=== PATIENT | female | born 1980 | race Caucasian/White ===

== ENCOUNTER 2018-08-13 21:20 | Emergency (ER) | payer BC, OTHER ==
[2018-08-13] MEDS ORDERED: ZIPRASIDONE MESYLA 20 MG/VIAL IM ONE (21:48)
[2018-08-13] MEDS ORDERED: WATER FOR INJ,STERILE 10 ML ONE (21:48)
--- NOTE | 2018-08-13 22:33 | EDPHYS ---
Physician Documentation [facility] Name: Kelsie Glasgow Age: 38 yrs Sex: Female : 1980 Arrival Date: 08/13/2018 Time: 21:26 Bed 3 Private MD: ED Physician Indra Kaufman HPI: 08/13 21:34 This 38 yrs old Female presents to ER via Unassigned with complaints of Psych kdr Problem. 21:34 The patient presents to the emergency department with anxiety, psychosis, manic. Onset: kdr The symptoms/episode began/occurred at an unknown time. Past psychiatric history: Prior diagnosis: depression, schizophrenia. Associated signs and symptoms: Pertinent positives; anxiety, paranoia. Severity of symptoms: At their worst the symptoms were incapacitating in the emergency department the symptoms are unchanged. It is unknown whether or not the patient has had similar symptoms in the past. It is unknown whether or not the patient has recently seen a physician. The patient was found walking down her street apparently in her neighborhood. 12 neighbors called 911 to report the patient and her activity.. Historical: - Allergies: 22:05 LITHIUM DERIVITIVES; fc - Home Meds: 22:08 Cogentin Oral 1 mg daily [Active]; Haldol 5 mg daily [Active]; Seroquel 100 mg Oral tab fc 1 tabs at noon and 3 tabs at night [Active]; Xanax 0.5 mg Oral tab 1 tab as needed [Active]; - PMHx: 22:05 Bipolar disorder; Depression; Schizophrenia; fc 22:08 Hypertension; Diabetes - NIDDM; Anxiety; ADD/ADHD; PTSD; Suicide attempt x 3; fc - PSHx: 22:08 None; fc - Immunization history:: Last tetanus immunization: up to date. - Social history:: Smoking status: Patient uses tobacco products, smokes one pack cigarettes per day. Patient/guardian denies using alcohol, the patient reports quitting approximately [address], [address] drugs. - Ebola Screening: : Patient negative for fever greater than or equal to 101.5 degrees Fahrenheit, and additional compatible Ebola Virus Disease symptoms Patient denies exposure to infectious person Patient denies travel to an Ebola-affected area in the 21 days before illness onset. ROS: 21:34 Constitutional: Unable to obtain since the patient is very verbal but uncooperative kdr with the exam and questioning. Exam: 21:34 Constitutional: This is a well developed, well nourished patient who is awake, hyper kdr alert, and in severe distress. The patient is unable to presently cooperative with the exam Head/Face: Normocephalic, atraumatic. Eyes: Pupils equal round and reactive to light, extra-ocular motions intact. Lids and lashes normal. Conjunctiva and sclera are non-icteric and not injected. Cornea within normal limits. Periorbital areas with no swelling, redness, or edema. Neck: Trachea midline, no thyromegaly or masses palpated, and no cervical lymphadenopathy. Supple, full range of motion without nuchal rigidity, or vertebral point tenderness. No Meningismus. Vital Signs: 21:20 BP 157 / 104; Pulse 121; Resp 18; Temp 98.0(O); Pulse Ox 99% on R/A; Weight 88.45 kg fc (R); Height 5 ft. 7 in. (170.18 cm) (R); Pain 0/10; 21:30 BP 148 / 103; Pulse 109; Resp 18; Pulse Ox 96% on R/A; Pain 0/10; aa1 22:53 BP 98 / 76; Pulse 82; Resp 16; Pulse Ox 100% on R/A; Pain 0/10; aa1 21:20 Body Mass Index 30.54 (88.45 kg, 170.18 cm) MDM: 22:32 Patient medically screened. [facility] 08/14 00:26 Data reviewed: vital signs, nurses notes, old medical records. [facility] 08/13 21:33 Order name: Acetaminophen [facility] 08/13 21:33 Order name: Basic Metabolic Panel [facility] 08/13 21:33 Order name: CBC with Diff [facility] 08/13 21:33 Order name: ETOH Level [facility] 08/13 21:33 Order name: Hepatic Function [facility] 08/13 21:33 Order name: EKG - Nurse/Tech [facility] 08/13 21:33 Order name: IV Saline Lock [facility] 08/13 21:33 Order name: Labs collected and sent [facility] 08/13 21:33 Order name: Urine Dipstick-Ancillary (obtain specimen) kdr Administered Medications: 08/13 21:48 Drug: Geodon 20 mg Route: IM; Site: left vastus lateralis; aa1 22:49 Follow up: Response: No adverse reaction; Marked relief of symptoms aa1 22:49 Not Given (Physician Discretion): HALdol 5 mg IVP once aa1 Disposition: 08/13/18 22:32 Discharged to Home. Impression: Adjustment disorder with depressed mood, Schizophrenia, unspecified, Paranoid schizophrenia, Paranoid personality disorder. - Condition is Fair. - Discharge Instructions: Adjustment Disorder, Adult. - Medication Reconciliation Form, Thank You Letter form. - Follow up: Private Physician; When: 1 - 2 days; Reason: If symptoms return, Further diagnostic work-up, Recheck today's complaints, Continuance of care, Re-evaluation by your physician. - Problem is an acute exacerbation. - Symptoms have improved. Signatures: Dispatcher [employer] EDConnie Steiner RN RN aa1 Indra Kaufman MD MD [facility] Mary Yin RN RN Corrections: (The following items were deleted from the chart) 22:58 22:32 08/13/2018 22:32 Discharged to Home. Impression: Adjustment disorder with aa1 depressed mood; Schizophrenia, unspecified; Paranoid schizophrenia; Paranoid personality disorder. Condition is Fair. Forms are Medication Reconciliation Form, Thank You Letter, Antibiotic Education, Prescription Opioid Use. Follow up: Private Physician; When: 1 - 2 days; Reason: If symptoms return, Further diagnostic work-up, Recheck today's complaints, Continuance of care, Re-evaluation by your physician. Problem is an acute exacerbation. Symptoms have improved. kdr
--- NOTE | 2018-08-13 22:33 | ER ---
Nurse's Notes [facility] Name: Kelsie Glasgow Age: 38 yrs Sex: Female : 1980 Arrival Date: 08/13/2018 Time: 21:26 Bed 3 Private MD: Diagnosis: Adjustment disorder with depressed mood;Schizophrenia, unspecified;Paranoid schizophrenia;Paranoid personality disorder Presentation: 08/13 21:20 Presenting complaint: EMS states: Pt was found wondering the streets after being called by multiple people. Pt was very anxious and hallucinating. Upon arrival pt stating she had sex with a dog, sleeping with Jay Bernard, Lizette and his were getting , screaming out to staff and calling them "bitches". Pt threatening to punch the staff. Spoke with who states that they called Mental Health to their home due to them concerned pt was going to hurt herself. Pt not talking medications as directed. Also gave me pts health info. Transition of care: patient was not received from another setting of care. Onset of symptoms was August 10, 2018. Risk Assessment: Do you want to hurt yourself or someone else? Patient reports no desire to harm self or others. Initial Sepsis Screen: Does the patient meet any 2 criteria? HR > 90 bpm. Yes Does the patient have a suspected source of infection? No. Patient's initial sepsis screen is negative. Care prior to arrival: None. 21:20 Method Of Arrival: EMS: [facility] 21:20 Acuity: ED 2 fc Historical: - Allergies: 22:05 LITHIUM DERIVITIVES; fc - Home Meds: 22:08 Cogentin Oral 1 mg daily [Active]; Haldol 5 mg daily [Active]; Seroquel 100 mg Oral tab fc 1 tabs at noon and 3 tabs at night [Active]; Xanax 0.5 mg Oral tab 1 tab as needed [Active]; - PMHx: 22:05 Bipolar disorder; Depression; Schizophrenia; fc 22:08 Hypertension; Diabetes - NIDDM; Anxiety; ADD/ADHD; PTSD; Suicide attempt x 3; fc - PSHx: 22:08 None; fc - Immunization history:: Last tetanus immunization: up to date. - Social history:: Smoking status: Patient uses tobacco products, smokes one pack cigarettes per day. Patient/guardian denies using alcohol, the patient reports quitting approximately [address], [address] drugs. - Ebola Screening: : Patient negative for fever greater than or equal to 101.5 degrees Fahrenheit, and additional compatible Ebola Virus Disease symptoms Patient denies exposure to infectious person Patient denies travel to an Ebola-affected area in the 21 days before illness onset. Screenin:20 Abuse screen: Denies threats or abuse. Nutritional screening: No deficits noted. fc Tuberculosis screening: No symptoms or risk factors identified. Fall Risk None identified. Assessment: 21:30 General: Appears in no apparent distress. comfortable, Behavior is agitated, combative, aa1 inappropriate for age, uncooperative. Pain: Denies pain. Neuro: Level of Consciousness is awake, alert, Oriented to person, place, time, Moves all extremities. Full function Speech is normal, Facial symmetry appears normal, Pupils are PERRLA. Respiratory: Airway is patent Respiratory effort is even, unlabored, Respiratory pattern is regular, symmetrical. GI: No signs and/or symptoms were reported involving the gastrointestinal system. : No signs and/or symptoms were reported regarding the genitourinary system. EENT: No signs and/or symptoms were reported regarding the EENT system. Derm: Skin is intact, is healthy with good turgor, Skin is pink, warm \\T\\ dry. Parent/caregiver reports the patient having itching. Musculoskeletal: Circulation, motion, and sensation intact. Capillary refill < 3 seconds, Range of motion: intact in all extremities. 21:32 Reassessment: Patient appears in no apparent distress at this time. Pt screaming out, aa1 "Jay Bernard!" States she is Ross Rashaad and decides who's the winner and who's the loser and she has all the money in the [employer] in [place] and [place]. When asked where her is she states, "He's at home fucking his daughter in the closet and fucking everybody else in the closet cause everyone is in the fucking closet." Pt removed monitoring equipment and continuously yelling out obscenities. notified of pt status. 21:48 Reassessment: Patient appears in no apparent distress at this time. Informed pt that aa1 the doctor ordered some medication for her to help her relax. Pt states, "If you give me that shot I'll punch you in your fucking face you fucking bitch." Informed pt that we are just trying to help her calm down so that we can provide care for her and pt replied, "I will punch you in your fucking face bitch if you give me that shot. And then you'll have to call the police and then I'll have to go to usp." Stated to pt again that we are just trying to help her and are concerned for her safety. Sahra administered IM at this time. Upon turning to walk towards the trash can pt grabbed a handful of ice and threw it, hitting me in the face. Pt then yelled, "Get the fuck out of my room you fucking bitch." [facility] notified of event and dispatch reports officers en route. 22:00 Reassessment: Patient appears in no apparent distress at this time. [employer] officers on aa1 scene at this time. 22:10 Reassessment: [employer] officers and charge nurse at bedside to obtain pt belongings. Pt aa1 threw pistachios all over floor. Belongings removed and inventoried at this time by charge nurse. Officers to remain at bedside at this time. 22:55 Reassessment: Patient appears in no apparent distress at this time. Patient is alert, aa1 oriented x 3, equal unlabored respirations, skin warm/dry/pink. Pt dc'd in police custody at this time. Vital Signs: 21:20 BP 157 / 104; Pulse 121; Resp 18; Temp 98.0(O); Pulse Ox 99% on R/A; Weight 88.45 kg fc (R); Height 5 ft. 7 in. (170.18 cm) (R); Pain 0/10; 21:30 BP 148 / 103; Pulse 109; Resp 18; Pulse Ox 96% on R/A; Pain 0/10; aa1 22:53 BP 98 / 76; Pulse 82; Resp 16; Pulse Ox 100% on R/A; Pain 0/10; aa1 21:20 Body Mass Index 30.54 (88.45 kg, 170.18 cm) ED Course: 21:20 Arm band placed on Patient placed in an exam room, on a stretcher. 21:20 Patient has correct armband on for positive identification. Bed in low position. Call fc light in reach. Side rails up X2. 21:20 No provider procedures requiring assistance completed. fc 21:26 Patient arrived in ED. fc 21:26 Pulse ox on. NIBP on. aa1 21:33 Indra Kaufman MD is Attending Physician. kdr 21:49 Triage completed. fc 22:48 Connie Watts, RN is Primary Nurse. aa1 22:55 Patient did not have IV access during this emergency room visit. aa1 Administered Medications: 21:48 Drug: Geodon 20 mg Route: IM; Site: left vastus lateralis; aa1 22:49 Follow up: Response: No adverse reaction; Marked relief of symptoms aa1 22:49 Not Given (Physician Discretion): HALdol 5 mg IVP once aa1 Outcome: 22:32 Discharge ordered by . kdr 22:55 Discharged to Law Enforcement aa1 22:55 Condition: stable 22:55 Discharge instructions given to police. 22:58 Patient left the ED. aa1 Signatures: Connie Watts, RN RN aa1 Indra Kaufman MD MD [facility] Mary Yin RN RN
== END 2018-08-13 22:58 | disposition home or self-care (01) ==
LOC: ER 21:20
DX: F20.0 Paranoid schizophrenia (principal); F60.0 Paranoid personality disorder; I10 Essential (primary) hypertension; F32.9 Major depressive disorder, single episode, unspecified; F17.210 Nicotine dependence, cigarettes, uncomplicated; Z88.8 Allergy status to other drugs, medicaments and biological substances
CPT/HCPCS: 96372; 99284; J3486